=== PATIENT | male | born 1945 | race Caucasian/White ===

== ENCOUNTER 2024-09-14 11:00 | Outpatient (RCR) | payer MEDICARE, SELFPAY ==
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
== END 2024-09-14 19:00 | disposition home or self-care (01) ==
LOC: OT 11:00
PROVIDERS: PCP Family Medicine
DX: T31.10 Burns involving 10-19% of body surface with 0% to 9% third degree burns (principal); Z94.5 Skin transplant status
CPT/HCPCS: 97035; 97110; 97140; 97166; 97530